=== PATIENT | male | born 1965 | race Caucasian/White ===

== ENCOUNTER 2017-08-05 05:28 | Inpatient (IN) | payer OTHER ==
[2017-08-05] MEDS ORDERED: MIDAZOLAM 1 MG/ML 2 ML INJ (08:13)
[2017-08-05] MEDS ORDERED: CEFAZOLIN 1 GM INJ (08:30)
[2017-08-05] MEDS ORDERED: PHENYLephrine (100 MCG/ML) 5ML SYG (08:42)
[2017-08-05] MEDS ORDERED: LIDOCAINE 2% (SDV) 5 ML INJ (09:38)
[2017-08-05] MEDS ORDERED: ROCURONIUM 50 MG INJ (09:38)
[2017-08-05] MEDS ORDERED: ETOMIDATE 20 MG INJ (09:38)
[2017-08-05] MEDS ORDERED: MEPERIDINE 25 MG INJ IV (10:00)
[2017-08-05] MEDS ORDERED: FENTAnyl 50 MCG/ML VIAL IV (10:00)
[2017-08-05] MEDS ORDERED: DIPHENHYDRAMINE 50 MG INJ IV (10:00)
[2017-08-05] MEDS ORDERED: ONDANSETRON 4 MG INJ IV (10:00)
[2017-08-05] MEDS ORDERED: HYDROmorphONE (0.2 MG/ML) 10ML SYG IV (10:03)
[2017-08-05] MEDS: HYDROmorphONE (0.2 MG/ML) 10ML SYG IV ×3 (10:20→10:42)
[2017-08-05 10:59] LABS: ADD MAN DIFF? NO
[2017-08-05 11:01] LABS: WHITE BLOOD COUNT 6.5 10^3/ul (4.8-10.8)
[2017-08-05 11:01] LABS: BASOPHILS % 0.5 % (0.0-2.0); EOSINOPHILS # 0.1 10^3/ul (0.0-0.5); EOSINOPHILS % 1.1 % (0.0-7.0); HEMATOCRIT 38.3 % (42.0-52.0); HEMOGLOBIN 12.8 g/dl (14.0-18.0); LYMPHOCYTES # 1.2 10^3/ul (0.8-2.9); LYMPHOCYTES % 17.8 % (15.0-51.0); MEAN CORPUSCULAR HEMOGLOBIN 28.5 pg (29.0-33.0); MEAN CORPUSCULAR HGB CONC 33.4 g/dl (32.0-37.0); MEAN CORPUSCULAR VOLUME 85.3 fl (82.0-101.0); MEAN PLATELET VOLUME 9.8 fl (7.4-10.4); MONOCYTE # 0.7 10^3/ul (0.3-0.9); MONOCYTES % 10.9 % (0.0-11.0); NEUTROPHIL # 4.5 10^3/ul (1.6-7.5); NEUTROPHILS % 69.4 % (39.0-77.0); PLATELET COUNT 200 10^3/UL (140-415); RED BLOOD COUNT 4.49 10^6/ul (4.70-6.10); RED CELL DISTRIBUTION WIDTH 13.1 % (11.5-14.5)
[2017-08-05] MEDS: 1/2 NS + KCL 20 MEQ 1,000 ML IV ×3 (11:46→21:30)
[2017-08-05] MEDS: HYDROmorphONE 1 MG/ML SYG IV (18:29)
[2017-08-06] MEDS: HYDROmorphONE 1 MG/ML SYG IV ×2 (01:57→11:36)
[2017-08-06] MEDS: 1/2 NS + KCL 20 MEQ 1,000 ML IV ×3 (06:00→22:32)
[2017-08-06] MEDS ORDERED: VANCOMYCIN IV PER PHARMACY XX (14:30)
[2017-08-06 16:59] LABS: CREATININE 0.92 mg/dl (0.61-1.24)
[2017-08-06 16:59] LABS: BLOOD UREA NITROGEN 14 mg/dl (7-20)
[2017-08-06] MEDS: VANCOMYCIN 2 GM in SOD CHLORIDE 0.9% 500 ML IVPB (17:42)
[2017-08-06] MEDS: DIPHENHYDRAMINE 50 MG INJ IV (22:29)
[2017-08-06] MEDS: CEFEPIME 1GM/50 ML (PMX) 50 ML IVPB (22:29)
[2017-08-07 05:54] LABS: ADD MAN DIFF? NO
[2017-08-07 05:58] LABS: WHITE BLOOD COUNT 6.9 10^3/ul (4.8-10.8)
[2017-08-07 05:58] LABS: BASOPHILS % 0.4 % (0.0-2.0); EOSINOPHILS # 0.1 10^3/ul (0.0-0.5); HEMATOCRIT 38.1 % (42.0-52.0); LYMPHOCYTES # 1.2 10^3/ul (0.8-2.9); LYMPHOCYTES % 17.2 % (15.0-51.0); MEAN CORPUSCULAR HGB CONC 34.1 g/dl (32.0-37.0); MEAN CORPUSCULAR VOLUME 84.9 fl (82.0-101.0); MEAN PLATELET VOLUME 10.3 fl (7.4-10.4); MONOCYTE # 0.8 10^3/ul (0.3-0.9); MONOCYTES % 12.3 % (0.0-11.0); NEUTROPHIL # 4.6 10^3/ul (1.6-7.5); NEUTROPHILS % 67.7 % (39.0-77.0); PLATELET COUNT 198 10^3/UL (140-415); RED BLOOD COUNT 4.49 10^6/ul (4.70-6.10); RED CELL DISTRIBUTION WIDTH 13.3 % (11.5-14.5)
[2017-08-07] MEDS ORDERED: VANCOMYCIN 1 GM 250 ML IVPB (06:00)
[2017-08-07 06:28] LABS: ANION GAP 13 (8-16); BLOOD UREA NITROGEN 13 mg/dl (7-20); CALCIUM 9.1 mg/dl (8.4-10.2); CARBON DIOXIDE 27 mmol/L (21-31); CHLORIDE 104 mmol/L (97-110); CREATININE 0.98 mg/dl (0.61-1.24); GLUCOSE 110 mg/dl (70-220); POTASSIUM 4.6 mmol/L (3.5-5.1); SODIUM 139 mmol/L (135-144)
[2017-08-07] MEDS: ZYVOX 600 MG TAB PO ×2 (08:59→20:33)
[2017-08-07] MEDS: CEFEPIME 1GM/50 ML (PMX) 50 ML IVPB ×2 (08:59→20:33)
[2017-08-07] MEDS: 1/2 NS + KCL 20 MEQ 1,000 ML IV ×4 (09:54→21:09)
[2017-08-07] MEDS: HYDROmorphONE 1 MG/ML SYG IV ×2 (11:50→21:40)
[2017-08-07] MEDS: LISINOPRIL 5 MG TAB PO (13:57)
[2017-08-08] MEDS: 1/2 NS + KCL 20 MEQ 1,000 ML IV ×3 (07:03→17:47)
[2017-08-08] MEDS: LISINOPRIL 5 MG TAB PO (08:33)
[2017-08-08] MEDS: CEFEPIME 1GM/50 ML (PMX) 50 ML IVPB (08:33)
[2017-08-08] MEDS: ZYVOX 600 MG TAB PO (08:33)
[2017-08-08] MEDS: HYDROmorphONE 1 MG/ML SYG IV ×2 (10:13→21:58)
[2017-08-08] MEDS: ACETAMINOPHEN 325 MG TAB PO (18:19)
[2017-08-08] MEDS: CLINDAMYCIN 600 MG/D5W (PMX) 50 ML IVPB (21:19)
[2017-08-09] MEDS: 1/2 NS + KCL 20 MEQ 1,000 ML IV ×5 (04:00→23:26)
[2017-08-09] MEDS: CLINDAMYCIN 600 MG/D5W (PMX) 50 ML IVPB ×3 (05:37→21:48)
[2017-08-09] MEDS: HYDROCODONE/APAP (5/325) TAB PO (07:31)
[2017-08-09] MEDS: LISINOPRIL 5 MG TAB PO (09:06)
[2017-08-09] MEDS: HYDROmorphONE 1 MG/ML SYG IV ×2 (13:48→21:54)
[2017-08-10] MEDS: 1/2 NS + KCL 20 MEQ 1,000 ML IV ×4 (05:23→20:00)
[2017-08-10] MEDS: CLINDAMYCIN 600 MG/D5W (PMX) 50 ML IVPB ×3 (05:25→21:21)
[2017-08-10 06:40] LABS: ADD MAN DIFF? NO
[2017-08-10 06:42] LABS: BASOPHIL # 0.1 10^3/ul (0.0-0.1); BASOPHILS % 0.9 % (0.0-2.0); EOSINOPHILS # 0.2 10^3/ul (0.0-0.5); HEMATOCRIT 39.4 % (42.0-52.0); LYMPHOCYTES # 1.4 10^3/ul (0.8-2.9); LYMPHOCYTES % 24.8 % (15.0-51.0); MEAN CORPUSCULAR HEMOGLOBIN 28.3 pg (29.0-33.0); MEAN CORPUSCULAR VOLUME 85.7 fl (82.0-101.0); MEAN PLATELET VOLUME 9.9 fl (7.4-10.4); MONOCYTE # 0.8 10^3/ul (0.3-0.9); MONOCYTES % 14.5 % (0.0-11.0); NEUTROPHILS % 54.9 % (39.0-77.0); PLATELET COUNT 222 10^3/UL (140-415); RED CELL DISTRIBUTION WIDTH 12.9 % (11.5-14.5)
[2017-08-10 06:42] LABS: WHITE BLOOD COUNT 5.5 10^3/ul (4.8-10.8)
[2017-08-10 07:23] LABS: ANION GAP 14 (8-16); BLOOD UREA NITROGEN 13 mg/dl (7-20); CARBON DIOXIDE 29 mmol/L (21-31); CHLORIDE 102 mmol/L (97-110); CREATININE 0.94 mg/dl (0.61-1.24); GLUCOSE 101 mg/dl (70-220); POTASSIUM 4.7 mmol/L (3.5-5.1); SODIUM 140 mmol/L (135-144)
[2017-08-10] MEDS: LISINOPRIL 5 MG TAB PO (09:00)
[2017-08-10] MEDS: HYDROmorphONE 1 MG/ML SYG IV ×2 (13:03→21:21)
[2017-08-11] MEDS: 1/2 NS + KCL 20 MEQ 1,000 ML IV ×2 (04:36→18:09)
[2017-08-11] MEDS: CLINDAMYCIN 600 MG/D5W (PMX) 50 ML IVPB ×3 (06:18→21:41)
[2017-08-11] MEDS: LISINOPRIL 5 MG TAB PO (08:56)
[2017-08-11] MEDS: HYDROmorphONE 1 MG/ML SYG IV (14:12)
[2017-08-12] MEDS: HYDROmorphONE 1 MG/ML SYG IV ×2 (01:38→21:54)
[2017-08-12] MEDS: 1/2 NS + KCL 20 MEQ 1,000 ML IV ×3 (02:00→18:03)
[2017-08-12] MEDS: CLINDAMYCIN 600 MG/D5W (PMX) 50 ML IVPB ×3 (05:34→21:16)
[2017-08-12 06:21] LABS: ADD MAN DIFF? NO
[2017-08-12 06:36] LABS: WHITE BLOOD COUNT 5.7 10^3/ul (4.8-10.8)
[2017-08-12 06:36] LABS: BASOPHIL # 0.1 10^3/ul (0.0-0.1); BASOPHILS % 1.4 % (0.0-2.0); EOSINOPHILS # 0.2 10^3/ul (0.0-0.5); EOSINOPHILS % 3.7 % (0.0-7.0); HEMOGLOBIN 13.7 g/dl (14.0-18.0); LYMPHOCYTES # 1.4 10^3/ul (0.8-2.9); LYMPHOCYTES % 25.4 % (15.0-51.0); MEAN CORPUSCULAR HEMOGLOBIN 29.2 pg (29.0-33.0); MEAN CORPUSCULAR HGB CONC 34.3 g/dl (32.0-37.0); MEAN CORPUSCULAR VOLUME 85.3 fl (82.0-101.0); MEAN PLATELET VOLUME 10.1 fl (7.4-10.4); MONOCYTE # 0.7 10^3/ul (0.3-0.9); MONOCYTES % 11.8 % (0.0-11.0); NEUTROPHIL # 3.2 10^3/ul (1.6-7.5); NEUTROPHILS % 57.2 % (39.0-77.0); PLATELET COUNT 231 10^3/UL (140-415); RED BLOOD COUNT 4.69 10^6/ul (4.70-6.10); RED CELL DISTRIBUTION WIDTH 13.3 % (11.5-14.5)
[2017-08-12 07:13] LABS: ANION GAP 18 (8-16); BLOOD UREA NITROGEN 13 mg/dl (7-20); CALCIUM 9.7 mg/dl (8.4-10.2); CARBON DIOXIDE 28 mmol/L (21-31); CHLORIDE 102 mmol/L (97-110); CREATININE 0.89 mg/dl (0.61-1.24); GLUCOSE 108 mg/dl (70-220); POTASSIUM 4.3 mmol/L (3.5-5.1); SODIUM 144 mmol/L (135-144)
[2017-08-12] MEDS: LISINOPRIL 5 MG TAB PO (09:00)
[2017-08-12] MEDS: HYDROCODONE/APAP (5/325) TAB PO (11:35)
[2017-08-13] MEDS: CLINDAMYCIN 600 MG/D5W (PMX) 50 ML IVPB ×3 (05:35→22:28)
[2017-08-13 06:19] LABS: ADD MAN DIFF? NO
[2017-08-13 06:31] LABS: BASOPHIL # 0.1 10^3/ul (0.0-0.1); EOSINOPHILS # 0.3 10^3/ul (0.0-0.5); EOSINOPHILS % 4.3 % (0.0-7.0); HEMATOCRIT 40.2 % (42.0-52.0); HEMOGLOBIN 13.4 g/dl (14.0-18.0); LYMPHOCYTES # 1.5 10^3/ul (0.8-2.9); LYMPHOCYTES % 23.8 % (15.0-51.0); MEAN CORPUSCULAR HEMOGLOBIN 28.6 pg (29.0-33.0); MEAN CORPUSCULAR HGB CONC 33.3 g/dl (32.0-37.0); MEAN CORPUSCULAR VOLUME 85.7 fl (82.0-101.0); MONOCYTE # 0.8 10^3/ul (0.3-0.9); MONOCYTES % 13.3 % (0.0-11.0); NEUTROPHIL # 3.6 10^3/ul (1.6-7.5); NEUTROPHILS % 56.8 % (39.0-77.0); PLATELET COUNT 223 10^3/UL (140-415); RED BLOOD COUNT 4.69 10^6/ul (4.70-6.10); RED CELL DISTRIBUTION WIDTH 13.3 % (11.5-14.5)
[2017-08-13 06:31] LABS: WHITE BLOOD COUNT 6.3 10^3/ul (4.8-10.8)
[2017-08-13 07:02] LABS: ANION GAP 13 (8-16); BLOOD UREA NITROGEN 17 mg/dl (7-20); CALCIUM 9.5 mg/dl (8.4-10.2); CARBON DIOXIDE 31 mmol/L (21-31); CHLORIDE 102 mmol/L (97-110); CREATININE 1.07 mg/dl (0.61-1.24); GLUCOSE 106 mg/dl (70-220); POTASSIUM 4.9 mmol/L (3.5-5.1); SODIUM 141 mmol/L (135-144)
[2017-08-13] MEDS: LISINOPRIL 5 MG TAB PO (09:01)
[2017-08-13] MEDS: HYDROmorphONE 1 MG/ML SYG IV ×3 (10:29→22:29)
[2017-08-13] MEDS: SOD CHLORIDE 0.9% 100 ML (16:30)
[2017-08-14] MEDS: CLINDAMYCIN 600 MG/D5W (PMX) 50 ML IVPB ×3 (05:13→22:33)
[2017-08-14] MEDS: LISINOPRIL 5 MG TAB PO (09:00)
[2017-08-14] MEDS: HYDROmorphONE 1 MG/ML SYG IV ×2 (12:53→22:33)
[2017-08-15] MEDS: CLINDAMYCIN 600 MG/D5W (PMX) 50 ML IVPB ×3 (06:01→21:07)
[2017-08-15] MEDS: LISINOPRIL 5 MG TAB PO (08:38)
[2017-08-15] MEDS: HYDROmorphONE 1 MG/ML SYG IV (13:21)
[2017-08-15] MEDS: ONDANSETRON 4 MG INJ IV (16:53)
[2017-08-15] MEDS: PANTOPRAZOLE (EC) 40 MG TAB PO (16:53)
[2017-08-16] MEDS: CLINDAMYCIN 600 MG/D5W (PMX) 50 ML IVPB ×3 (05:38→22:37)
[2017-08-16] MEDS: PANTOPRAZOLE (EC) 40 MG TAB PO (05:38)
[2017-08-16 06:32] LABS: ADD MAN DIFF? NO
[2017-08-16 06:42] LABS: ABNORMAL IP MESSAGE 1; BASOPHILS % 0.4 % (0.0-2.0); EOSINOPHILS # 0.2 10^3/ul (0.0-0.5); EOSINOPHILS % 2.4 % (0.0-7.0); HEMATOCRIT 41.3 % (42.0-52.0); HEMOGLOBIN 14.2 g/dl (14.0-18.0); LYMPHOCYTES # 0.6 10^3/ul (0.8-2.9); LYMPHOCYTES % 6.5 % (15.0-51.0); MEAN CORPUSCULAR HEMOGLOBIN 29.1 pg (29.0-33.0); MEAN CORPUSCULAR HGB CONC 34.4 g/dl (32.0-37.0); MEAN CORPUSCULAR VOLUME 84.6 fl (82.0-101.0); MONOCYTE # 0.6 10^3/ul (0.3-0.9); MONOCYTES % 7.6 % (0.0-11.0); NEUTROPHILS % 82.5 % (39.0-77.0); PLATELET COUNT 200 10^3/UL (140-415); POSITIVE DIFF @See below; RED BLOOD COUNT 4.88 10^6/ul (4.70-6.10); RED CELL DISTRIBUTION WIDTH 13.7 % (11.5-14.5)
[2017-08-16 06:42] LABS: WHITE BLOOD COUNT 8.5 10^3/ul (4.8-10.8)
[2017-08-16 07:34] LABS: ANION GAP 19 (8-16); BLOOD UREA NITROGEN 16 mg/dl (7-20); CALCIUM 8.9 mg/dl (8.4-10.2); CARBON DIOXIDE 25 mmol/L (21-31); CHLORIDE 102 mmol/L (97-110); CREATININE 0.87 mg/dl (0.61-1.24); GLUCOSE 106 mg/dl (70-220); POTASSIUM 3.9 mmol/L (3.5-5.1); SODIUM 142 mmol/L (135-144)
[2017-08-16] MEDS: LISINOPRIL 5 MG TAB PO (09:00)
[2017-08-16] MEDS: ONDANSETRON 4 MG INJ IV ×2 (09:03→21:14)
[2017-08-16] MEDS: HYDROmorphONE 1 MG/ML SYG IV (12:26)
[2017-08-16] MEDS: HYDROCODONE/APAP (5/325) TAB PO (19:20)
[2017-08-17] MEDS: CLINDAMYCIN 600 MG/D5W (PMX) 50 ML IVPB ×3 (06:10→21:07)
[2017-08-17] MEDS: PANTOPRAZOLE (EC) 40 MG TAB PO (06:13)
[2017-08-17 06:27] LABS: ADD MAN DIFF? NO
[2017-08-17 06:31] LABS: WHITE BLOOD COUNT 5.3 10^3/ul (4.8-10.8)
[2017-08-17 06:31] LABS: BASOPHILS % 0.4 % (0.0-2.0); EOSINOPHILS # 0.2 10^3/ul (0.0-0.5); EOSINOPHILS % 4.5 % (0.0-7.0); HEMATOCRIT 38.4 % (42.0-52.0); HEMOGLOBIN 13.1 g/dl (14.0-18.0); LYMPHOCYTES # 0.9 10^3/ul (0.8-2.9); LYMPHOCYTES % 16.9 % (15.0-51.0); MEAN CORPUSCULAR HEMOGLOBIN 28.9 pg (29.0-33.0); MEAN CORPUSCULAR HGB CONC 34.1 g/dl (32.0-37.0); MEAN CORPUSCULAR VOLUME 84.8 fl (82.0-101.0); MEAN PLATELET VOLUME 10.2 fl (7.4-10.4); MONOCYTE # 0.8 10^3/ul (0.3-0.9); NEUTROPHIL # 3.3 10^3/ul (1.6-7.5); NEUTROPHILS % 62.4 % (39.0-77.0); PLATELET COUNT 169 10^3/UL (140-415); RED BLOOD COUNT 4.53 10^6/ul (4.70-6.10); RED CELL DISTRIBUTION WIDTH 13.4 % (11.5-14.5)
[2017-08-17 06:58] LABS: ANION GAP 16 (8-16); BLOOD UREA NITROGEN 14 mg/dl (7-20); CALCIUM 8.2 mg/dl (8.4-10.2); CARBON DIOXIDE 26 mmol/L (21-31); CHLORIDE 102 mmol/L (97-110); CREATININE 0.85 mg/dl (0.61-1.24); GLUCOSE 99 mg/dl (70-220); SODIUM 140 mmol/L (135-144)
[2017-08-17 07:14] LABS: MONOCYTES % 15.2 % (0.0-11.0)
[2017-08-17] MEDS: LISINOPRIL 5 MG TAB PO (08:56)
[2017-08-17] MEDS: ONDANSETRON 4 MG INJ IV ×2 (13:27→21:13)
[2017-08-18] MEDS: CLINDAMYCIN 600 MG/D5W (PMX) 50 ML IVPB ×3 (05:41→21:22)
[2017-08-18] MEDS: PANTOPRAZOLE (EC) 40 MG TAB PO (05:55)
[2017-08-18 06:23] LABS: ADD MAN DIFF? NO
[2017-08-18 06:30] LABS: BASOPHILS % 0.7 % (0.0-2.0); EOSINOPHILS # 0.2 10^3/ul (0.0-0.5); EOSINOPHILS % 4.3 % (0.0-7.0); HEMATOCRIT 39.9 % (42.0-52.0); HEMOGLOBIN 13.3 g/dl (14.0-18.0); LYMPHOCYTES # 1.2 10^3/ul (0.8-2.9); LYMPHOCYTES % 21.3 % (15.0-51.0); MEAN CORPUSCULAR HEMOGLOBIN 28.1 pg (29.0-33.0); MEAN CORPUSCULAR HGB CONC 33.3 g/dl (32.0-37.0); MEAN CORPUSCULAR VOLUME 84.4 fl (82.0-101.0); MEAN PLATELET VOLUME 10.3 fl (7.4-10.4); MONOCYTE # 0.8 10^3/ul (0.3-0.9); MONOCYTES % 14.2 % (0.0-11.0); NEUTROPHIL # 3.3 10^3/ul (1.6-7.5); NEUTROPHILS % 58.8 % (39.0-77.0); PLATELET COUNT 172 10^3/UL (140-415); RED BLOOD COUNT 4.73 10^6/ul (4.70-6.10); RED CELL DISTRIBUTION WIDTH 13.4 % (11.5-14.5)
[2017-08-18 06:30] LABS: WHITE BLOOD COUNT 5.6 10^3/ul (4.8-10.8)
[2017-08-18 07:00] LABS: ANION GAP 18 (8-16); BLOOD UREA NITROGEN 13 mg/dl (7-20); CALCIUM 8.8 mg/dl (8.4-10.2); CARBON DIOXIDE 26 mmol/L (21-31); CHLORIDE 103 mmol/L (97-110); CREATININE 0.86 mg/dl (0.61-1.24); GLUCOSE 100 mg/dl (70-220); POTASSIUM 4.3 mmol/L (3.5-5.1); SODIUM 143 mmol/L (135-144)
[2017-08-18] MEDS: LISINOPRIL 5 MG TAB PO (08:23)
[2017-08-18] MEDS: HYDROCODONE/APAP (5/325) TAB PO (17:29)
[2017-08-18] MEDS: HYDROmorphONE 2 MG TAB PO ×2 (18:53→22:39)
[2017-08-19] MEDS: HYDROmorphONE 2 MG TAB PO ×3 (02:43→19:51)
[2017-08-19] MEDS: CLINDAMYCIN 600 MG/D5W (PMX) 50 ML IVPB ×3 (05:42→21:33)
[2017-08-19] MEDS: PANTOPRAZOLE (EC) 40 MG TAB PO (05:42)
[2017-08-19] MEDS: LISINOPRIL 5 MG TAB PO (08:16)
[2017-08-20] MEDS: CLINDAMYCIN 600 MG/D5W (PMX) 50 ML IVPB ×3 (05:39→21:55)
[2017-08-20] MEDS: PANTOPRAZOLE (EC) 40 MG TAB PO (05:39)
[2017-08-20 06:03] LABS: ADD MAN DIFF? NO
[2017-08-20 06:13] LABS: BASOPHIL # 0.1 10^3/ul (0.0-0.1); BASOPHILS % 1.1 % (0.0-2.0); EOSINOPHILS # 0.2 10^3/ul (0.0-0.5); EOSINOPHILS % 4.2 % (0.0-7.0); HEMATOCRIT 37.2 % (42.0-52.0); HEMOGLOBIN 12.7 g/dl (14.0-18.0); LYMPHOCYTES # 1.2 10^3/ul (0.8-2.9); LYMPHOCYTES % 22.5 % (15.0-51.0); MEAN CORPUSCULAR HEMOGLOBIN 28.7 pg (29.0-33.0); MEAN CORPUSCULAR HGB CONC 34.1 g/dl (32.0-37.0); MEAN PLATELET VOLUME 10.1 fl (7.4-10.4); MONOCYTE # 0.7 10^3/ul (0.3-0.9); MONOCYTES % 12.3 % (0.0-11.0); NEUTROPHIL # 3.2 10^3/ul (1.6-7.5); PLATELET COUNT 174 10^3/UL (140-415); RED BLOOD COUNT 4.43 10^6/ul (4.70-6.10); RED CELL DISTRIBUTION WIDTH 13.2 % (11.5-14.5)
[2017-08-20 06:13] LABS: WHITE BLOOD COUNT 5.4 10^3/ul (4.8-10.8)
[2017-08-20 06:40] LABS: ANION GAP 16 (8-16); BLOOD UREA NITROGEN 13 mg/dl (7-20); CALCIUM 8.7 mg/dl (8.4-10.2); CARBON DIOXIDE 28 mmol/L (21-31); CHLORIDE 101 mmol/L (97-110); CREATININE 0.82 mg/dl (0.61-1.24); GLUCOSE 91 mg/dl (70-220); POTASSIUM 4.1 mmol/L (3.5-5.1); SODIUM 141 mmol/L (135-144)
[2017-08-20] MEDS: LISINOPRIL 5 MG TAB PO (08:32)
[2017-08-20] MEDS: HYDROmorphONE 2 MG TAB PO ×2 (14:45→21:56)
[2017-08-20] MEDS: HYDROCODONE/APAP (5/325) TAB PO (18:57)
[2017-08-21] MEDS: HYDROmorphONE 2 MG TAB PO ×2 (04:21→20:36)
[2017-08-21] MEDS: PANTOPRAZOLE (EC) 40 MG TAB PO (05:51)
[2017-08-21] MEDS: CLINDAMYCIN 600 MG/D5W (PMX) 50 ML IVPB ×3 (05:52→22:28)
[2017-08-21] MEDS: LISINOPRIL 5 MG TAB PO (09:00)
[2017-08-22] MEDS: PANTOPRAZOLE (EC) 40 MG TAB PO (06:13)
[2017-08-22] MEDS: CLINDAMYCIN 600 MG/D5W (PMX) 50 ML IVPB ×3 (06:13→21:10)
[2017-08-22] MEDS: LISINOPRIL 5 MG TAB PO (08:42)
[2017-08-22] MEDS: HYDROmorphONE 2 MG TAB PO (21:18)
[2017-08-23] MEDS: PANTOPRAZOLE (EC) 40 MG TAB PO (05:37)
[2017-08-23] MEDS: CLINDAMYCIN 600 MG/D5W (PMX) 50 ML IVPB ×3 (05:37→22:04)
[2017-08-23 06:30] LABS: ADD MAN DIFF? NO
[2017-08-23 06:41] LABS: WHITE BLOOD COUNT 5.2 10^3/ul (4.8-10.8)
[2017-08-23 06:41] LABS: BASOPHIL # 0.1 10^3/ul (0.0-0.1); EOSINOPHILS # 0.2 10^3/ul (0.0-0.5); HEMOGLOBIN 12.9 g/dl (14.0-18.0); LYMPHOCYTES # 1.4 10^3/ul (0.8-2.9); LYMPHOCYTES % 26.5 % (15.0-51.0); MEAN CORPUSCULAR HEMOGLOBIN 28.7 pg (29.0-33.0); MEAN CORPUSCULAR HGB CONC 33.9 g/dl (32.0-37.0); MEAN CORPUSCULAR VOLUME 84.4 fl (82.0-101.0); MEAN PLATELET VOLUME 10.2 fl (7.4-10.4); MONOCYTE # 0.6 10^3/ul (0.3-0.9); NEUTROPHIL # 2.9 10^3/ul (1.6-7.5); NEUTROPHILS % 55.5 % (39.0-77.0); PLATELET COUNT 192 10^3/UL (140-415); RED CELL DISTRIBUTION WIDTH 13.2 % (11.5-14.5)
[2017-08-23 07:02] LABS: ANION GAP 15 (8-16); BLOOD UREA NITROGEN 15 mg/dl (7-20); CALCIUM 8.8 mg/dl (8.4-10.2); CARBON DIOXIDE 28 mmol/L (21-31); CHLORIDE 102 mmol/L (97-110); CREATININE 0.85 mg/dl (0.61-1.24); GLUCOSE 98 mg/dl (70-220); POTASSIUM 4.1 mmol/L (3.5-5.1); SODIUM 141 mmol/L (135-144)
[2017-08-23] MEDS: LISINOPRIL 5 MG TAB PO (09:00)
[2017-08-23] MEDS: HYDROmorphONE 2 MG TAB PO ×3 (10:37→22:09)
[2017-08-23] MEDS: HYDROCODONE/APAP (5/325) TAB PO (13:19)
[2017-08-24] MEDS: PANTOPRAZOLE (EC) 40 MG TAB PO (05:38)
[2017-08-24] MEDS: CLINDAMYCIN 600 MG/D5W (PMX) 50 ML IVPB ×2 (05:40→13:59)
[2017-08-24] MEDS: LISINOPRIL 5 MG TAB PO (09:00)
[2017-08-24] MEDS: DAPTOMYCIN 600 MG in SOD CHLORIDE 0.9% 100 ML IVPB (18:12)
[2017-08-25] MEDS: PANTOPRAZOLE (EC) 40 MG TAB PO (05:46)
[2017-08-25 06:00] LABS: ADD MAN DIFF? NO
[2017-08-25 06:14] LABS: BASOPHILS % 0.7 % (0.0-2.0); EOSINOPHILS # 0.2 10^3/ul (0.0-0.5); EOSINOPHILS % 3.6 % (0.0-7.0); HEMATOCRIT 41.5 % (42.0-52.0); LYMPHOCYTES # 1.3 10^3/ul (0.8-2.9); LYMPHOCYTES % 23.1 % (15.0-51.0); MEAN CORPUSCULAR HEMOGLOBIN 28.3 pg (29.0-33.0); MEAN CORPUSCULAR HGB CONC 33.7 g/dl (32.0-37.0); MEAN PLATELET VOLUME 10.3 fl (7.4-10.4); MONOCYTE # 0.8 10^3/ul (0.3-0.9); MONOCYTES % 13.6 % (0.0-11.0); NEUTROPHIL # 3.4 10^3/ul (1.6-7.5); NEUTROPHILS % 58.3 % (39.0-77.0); PLATELET COUNT 221 10^3/UL (140-415); RED BLOOD COUNT 4.94 10^6/ul (4.70-6.10); RED CELL DISTRIBUTION WIDTH 13.1 % (11.5-14.5)
[2017-08-25 06:14] LABS: WHITE BLOOD COUNT 5.8 10^3/ul (4.8-10.8)
[2017-08-25 06:50] LABS: ANION GAP 17 (8-16); BLOOD UREA NITROGEN 11 mg/dl (7-20); CALCIUM 9.3 mg/dl (8.4-10.2); CARBON DIOXIDE 25 mmol/L (21-31); CHLORIDE 105 mmol/L (97-110); CREATININE 0.78 mg/dl (0.61-1.24); GLUCOSE 104 mg/dl (70-220); POTASSIUM 4.7 mmol/L (3.5-5.1); SODIUM 142 mmol/L (135-144)
[2017-08-25 06:57] LABS: CREATINE KINASE 44 IU/L (23-200)
[2017-08-25] MEDS: LISINOPRIL 5 MG TAB PO (09:05)
[2017-08-25] MEDS: HYDROmorphONE 2 MG TAB PO (14:39)
[2017-08-25] MEDS: DAPTOMYCIN 600 MG in SOD CHLORIDE 0.9% 100 ML IVPB (17:17)
[2017-08-25] MEDS: ALTEPLASE (CATHFLO) 2 MG INJ CATHETER (18:58)
[2017-08-26] MEDS: PANTOPRAZOLE (EC) 40 MG TAB PO (05:59)
[2017-08-26] MEDS: LISINOPRIL 5 MG TAB PO (08:43)
[2017-08-26] MEDS: DAPTOMYCIN 600 MG in SOD CHLORIDE 0.9% 100 ML IVPB (17:01)
[2017-08-27] MEDS: PANTOPRAZOLE (EC) 40 MG TAB PO (06:00)
[2017-08-27 06:33] LABS: ANION GAP 14 (8-16); BLOOD UREA NITROGEN 14 mg/dl (7-20); CALCIUM 9.5 mg/dl (8.4-10.2); CARBON DIOXIDE 27 mmol/L (21-31); CHLORIDE 104 mmol/L (97-110); CREATININE 0.86 mg/dl (0.61-1.24); GLUCOSE 107 mg/dl (70-220); SODIUM 141 mmol/L (135-144)
[2017-08-27] MEDS: LISINOPRIL 5 MG TAB PO (08:59)
[2017-08-27] MEDS: HYDROmorphONE 2 MG TAB PO (12:58)
[2017-08-27] MEDS: DAPTOMYCIN 600 MG in SOD CHLORIDE 0.9% 100 ML IVPB (17:33)
[2017-08-27] MEDS: HYDROCODONE/APAP (5/325) TAB PO (20:06)
[2017-08-28] MEDS: PANTOPRAZOLE (EC) 40 MG TAB PO (06:00)
[2017-08-28 06:14] LABS: ADD MAN DIFF? NO
[2017-08-28 06:17] LABS: WHITE BLOOD COUNT 5.6 10^3/ul (4.8-10.8)
[2017-08-28 06:17] LABS: BASOPHIL # 0.1 10^3/ul (0.0-0.1); BASOPHILS % 0.9 % (0.0-2.0); EOSINOPHILS # 0.2 10^3/ul (0.0-0.5); EOSINOPHILS % 3.4 % (0.0-7.0); HEMOGLOBIN 12.8 g/dl (14.0-18.0); LYMPHOCYTES # 1.6 10^3/ul (0.8-2.9); LYMPHOCYTES % 27.9 % (15.0-51.0); MEAN CORPUSCULAR HEMOGLOBIN 28.1 pg (29.0-33.0); MEAN CORPUSCULAR HGB CONC 33.7 g/dl (32.0-37.0); MEAN CORPUSCULAR VOLUME 83.3 fl (82.0-101.0); MEAN PLATELET VOLUME 10.4 fl (7.4-10.4); MONOCYTE # 0.8 10^3/ul (0.3-0.9); MONOCYTES % 14.6 % (0.0-11.0); NEUTROPHIL # 2.9 10^3/ul (1.6-7.5); NEUTROPHILS % 52.8 % (39.0-77.0); PLATELET COUNT 183 10^3/UL (140-415); RED BLOOD COUNT 4.56 10^6/ul (4.70-6.10); RED CELL DISTRIBUTION WIDTH 13.2 % (11.5-14.5)
[2017-08-28] MEDS: LISINOPRIL 5 MG TAB PO (09:00)
[2017-08-28] MEDS: DAPTOMYCIN 600 MG in SOD CHLORIDE 0.9% 100 ML IVPB (16:29)
[2017-08-29] MEDS: PANTOPRAZOLE (EC) 40 MG TAB PO (05:25)
[2017-08-29 06:10] LABS: ADD MAN DIFF? NO
[2017-08-29 06:13] LABS: BASOPHIL # 0.1 10^3/ul (0.0-0.1); BASOPHILS % 1.1 % (0.0-2.0); EOSINOPHILS # 0.2 10^3/ul (0.0-0.5); EOSINOPHILS % 3.2 % (0.0-7.0); HEMATOCRIT 37.8 % (42.0-52.0); HEMOGLOBIN 12.9 g/dl (14.0-18.0); LYMPHOCYTES # 1.5 10^3/ul (0.8-2.9); LYMPHOCYTES % 25.9 % (15.0-51.0); MEAN CORPUSCULAR HEMOGLOBIN 28.5 pg (29.0-33.0); MEAN CORPUSCULAR HGB CONC 34.1 g/dl (32.0-37.0); MEAN CORPUSCULAR VOLUME 83.4 fl (82.0-101.0); MEAN PLATELET VOLUME 10.4 fl (7.4-10.4); MONOCYTE # 0.8 10^3/ul (0.3-0.9); MONOCYTES % 13.9 % (0.0-11.0); NEUTROPHIL # 3.2 10^3/ul (1.6-7.5); NEUTROPHILS % 55.5 % (39.0-77.0); PLATELET COUNT 183 10^3/UL (140-415); RED BLOOD COUNT 4.53 10^6/ul (4.70-6.10); RED CELL DISTRIBUTION WIDTH 13.3 % (11.5-14.5)
[2017-08-29 06:13] LABS: WHITE BLOOD COUNT 5.7 10^3/ul (4.8-10.8)
[2017-08-29 07:00] LABS: ANION GAP 17 (8-16); BLOOD UREA NITROGEN 17 mg/dl (7-20); CARBON DIOXIDE 25 mmol/L (21-31); CHLORIDE 105 mmol/L (97-110); CREATININE 0.82 mg/dl (0.61-1.24); GLUCOSE 104 mg/dl (70-220); POTASSIUM 4.2 mmol/L (3.5-5.1); SODIUM 143 mmol/L (135-144)
[2017-08-29] MEDS: LISINOPRIL 5 MG TAB PO (08:59)
[2017-08-29] MEDS: DAPTOMYCIN 600 MG in SOD CHLORIDE 0.9% 100 ML IVPB (16:33)
[2017-08-30] MEDS: PANTOPRAZOLE (EC) 40 MG TAB PO (06:30)
[2017-08-30] MEDS: LISINOPRIL 5 MG TAB PO (08:10)
[2017-08-30] MEDS: HYDROmorphONE 2 MG TAB PO (12:34)
[2017-08-30] MEDS: DAPTOMYCIN 600 MG in SOD CHLORIDE 0.9% 100 ML IVPB (16:34)
[2017-08-31] MEDS: PANTOPRAZOLE (EC) 40 MG TAB PO (06:33)
[2017-08-31] MEDS: LISINOPRIL 5 MG TAB PO (08:45)
[2017-08-31] MEDS: DAPTOMYCIN 600 MG in SOD CHLORIDE 0.9% 100 ML IVPB (17:17)
[2017-09-01] MEDS: PANTOPRAZOLE (EC) 40 MG TAB PO (06:42)
[2017-09-01 06:56] LABS: CREATINE KINASE 43 IU/L (23-200)
[2017-09-01] MEDS: LISINOPRIL 5 MG TAB PO (08:52)
[2017-09-01] MEDS: HYDROmorphONE 2 MG TAB PO (14:35)
[2017-09-01] MEDS: DAPTOMYCIN 600 MG in SOD CHLORIDE 0.9% 100 ML IVPB (17:39)
[2017-09-02] MEDS: HYDROmorphONE 2 MG TAB PO (01:58)
[2017-09-02] MEDS: PANTOPRAZOLE (EC) 40 MG TAB PO (06:25)
[2017-09-02] MEDS: LISINOPRIL 5 MG TAB PO (08:26)
[2017-09-02] MEDS: HYDROmorphONE 1 MG/ML SYG IV (11:50)
[2017-09-02] MEDS: DAPTOMYCIN 600 MG in SOD CHLORIDE 0.9% 100 ML IVPB (16:57)
[2017-09-02] MEDS: ACETAMINOPHEN 325 MG TAB PO (17:49)
[2017-09-03] MEDS: PANTOPRAZOLE (EC) 40 MG TAB PO (05:44)
[2017-09-03] MEDS: LISINOPRIL 5 MG TAB PO (09:33)
[2017-09-03] MEDS: DAPTOMYCIN 600 MG in SOD CHLORIDE 0.9% 100 ML IVPB (17:02)
[2017-09-04] MEDS: PANTOPRAZOLE (EC) 40 MG TAB PO (05:54)
[2017-09-04] MEDS: LISINOPRIL 5 MG TAB PO (09:30)
[2017-09-04] MEDS: DAPTOMYCIN 600 MG in SOD CHLORIDE 0.9% 100 ML IVPB (18:06)
[2017-09-05 06:18] LABS: ADD MAN DIFF? NO
[2017-09-05] MEDS: PANTOPRAZOLE (EC) 40 MG TAB PO (06:37)
[2017-09-05 06:47] LABS: BASOPHILS % 0.6 % (0.0-2.0); EOSINOPHILS # 0.2 10^3/ul (0.0-0.5); EOSINOPHILS % 3.4 % (0.0-7.0); HEMATOCRIT 39.2 % (42.0-52.0); HEMOGLOBIN 13.1 g/dl (14.0-18.0); LYMPHOCYTES # 1.3 10^3/ul (0.8-2.9); LYMPHOCYTES % 25.3 % (15.0-51.0); MEAN CORPUSCULAR HEMOGLOBIN 28.2 pg (29.0-33.0); MEAN CORPUSCULAR HGB CONC 33.4 g/dl (32.0-37.0); MEAN CORPUSCULAR VOLUME 84.3 fl (82.0-101.0); MEAN PLATELET VOLUME 10.5 fl (7.4-10.4); MONOCYTE # 0.8 10^3/ul (0.3-0.9); MONOCYTES % 15.8 % (0.0-11.0); NEUTROPHIL # 2.8 10^3/ul (1.6-7.5); NEUTROPHILS % 54.5 % (39.0-77.0); PLATELET COUNT 193 10^3/UL (140-415); RED BLOOD COUNT 4.65 10^6/ul (4.70-6.10); RED CELL DISTRIBUTION WIDTH 13.3 % (11.5-14.5)
[2017-09-05 06:47] LABS: WHITE BLOOD COUNT 5.1 10^3/ul (4.8-10.8)
[2017-09-05 07:06] LABS: ANION GAP 16 (8-16); BLOOD UREA NITROGEN 16 mg/dl (7-20); CALCIUM 9.4 mg/dl (8.4-10.2); CARBON DIOXIDE 28 mmol/L (21-31); CHLORIDE 104 mmol/L (97-110); CREATININE 0.85 mg/dl (0.61-1.24); GLUCOSE 112 mg/dl (70-220); SODIUM 144 mmol/L (135-144)
[2017-09-05] MEDS: LISINOPRIL 5 MG TAB PO (08:46)
[2017-09-05] MEDS: DAPTOMYCIN 600 MG in SOD CHLORIDE 0.9% 100 ML IVPB (17:41)
[2017-09-05] MEDS: HYDROmorphONE 2 MG TAB PO (22:01)
[2017-09-06] MEDS: PANTOPRAZOLE (EC) 40 MG TAB PO (05:56)
[2017-09-06] MEDS: LISINOPRIL 5 MG TAB PO (09:41)
[2017-09-06] MEDS: DAPTOMYCIN 600 MG in SOD CHLORIDE 0.9% 100 ML IVPB (12:16)
== END 2017-09-06 13:15 | disposition home health service (06) | DRG 581 ==
LOC: REC 05:28 → MS2 08-09 21:26
PROVIDERS: Thoracic Surgery (Cardiothoracic Vascular Surgery)
PROC: 0P9 Upper Bones, Drainage (ICD-10-PCS; principal; 2017-08-05 08:00)
PROC: 0PB00ZZ Excision of Sternum, Open Approach (ICD-10-PCS; 2017-08-05 08:00)
PROC: 0PP004Z Removal of Internal Fixation Device from Sternum, Open Approach (ICD-10-PCS; 2017-08-05 08:00)
PROC: 2W14X6Z Compression of Chest Wall using Pressure Dressing (ICD-10-PCS; 2017-08-05 08:00)
PROC: 02HV33Z Insertion of Infusion Device into Superior Vena Cava, Percutaneous Approach (ICD-10-PCS; 2017-08-05 08:11)
PROC: B24CZZ4 Ultrasonography of Pericardium, Transesophageal (ICD-10-PCS; 2017-08-05 08:11)
DX: L02.213 Cutaneous abscess of chest wall (principal); E66.01 Morbid (severe) obesity due to excess calories; I10 Essential (primary) hypertension; Z68.29 Body mass index [BMI] 29.0-29.9, adult; Z95.2 Presence of prosthetic heart valve
CPT/HCPCS: 36569; 71010; 76937; 80048; 82550; 82565; 84520; 85025; 87040; 87070; 87075; 87086; 93005; 93312